=== PATIENT | female | born 1940 | race Caucasian/White ===

== ENCOUNTER → 2017-01-15 | Outpatient (CLI) | payer OTHER ==
[2017-01-15 14:55] LABS: BLOOD UREA NITROGEN 39 mg/dL (7-22); BUN/CREATININE RATIO 22.94 (6-20); CALCIUM 10.2 mg/dL (8.7-10.7); CHOL/HDL RATIO 2.05 RATIO (0-4.0); HDL CHOLESTEROL 72 mg/dL (40-150); SERUM ALBUMIN 4.2 g/dL (3.5-4.8); SERUM CHOLESTEROL 148 mg/dL (120-200)
[2017-01-15 15:01] LABS: BASOPHILS # (AUTO) 0.02 10*3/UL; BASOPHILS % (AUTO) 0.4 % (0-1); EOSINOPHILS # (AUTO) 0.27 10*3/UL; EOSINOPHILS % (AUTO) 5.7 % (0-8); HEMATOCRIT 32.9 % (37.0-47.0); HEMOGLOBIN 10.6 g/dL (12.0-16.0); LYMPHOCYTES # (AUTO) 1.24 10*3/uL; MEAN CORPUSCULAR HEMOGLOBIN 29.9 PG (27-31); MEAN CORPUSCULAR HGB CONC 32.2 g/dL (33-37); MEAN CORPUSCULAR VOLUME 92.7 FL (81-99); MEAN PLATELET VOLUME 10.2 FL (7.4-12.2); MONOCYTES # (AUTO) 0.41 10*3/UL (0.3-0.8); MONOCYTES % (AUTO) 8.7 % (5-15); NEUTROPHILS # (AUTO) 2.75 10*3/UL; NEUTROPHILS % (AUTO) 58.6 % (50-80); RED BLOOD COUNT 3.55 10^6/uL (4.20-5.40)
[2017-01-15 15:02] LABS: PLATELET MORPHOLOGY COMMENT NORMAL MORPHOLOGY (NORM); RBC MORPHOLOGY COMMENT NORMAL MORPHOLOGY (NORM); WBC MORPHOLOGY COMMENT NORMAL MORPHOLOGY (NORM)
[2017-01-15 15:29] LABS: HEMOGLOBIN A1C 4.67 % (4.2-6.0)
[2017-01-15 15:39] LABS: MAGNESIUM 1.7 mg/dL (1.6-2.4); URIC ACID 8.5 mg/dl (2.5-7.5)
[2017-01-15 16:44] LABS: FREE T4 (FREE THYROXINE) 1.45 ng/dL (0.93-1.71)
== END ==
LOC: LAB 08:36
PROVIDERS: ATTEND Internal Medicine
DX: I10 Essential (primary) hypertension (principal); E78.5 Hyperlipidemia, unspecified; E03.9 Hypothyroidism, unspecified; E11.9 Type 2 diabetes mellitus without complications; M10.9 Gout, unspecified; E83.42 Hypomagnesemia; D64.9 Anemia, unspecified; Q78.2 Osteopetrosis
CPT/HCPCS: 80053; 80061; 82306; 82728; 83036; 83735; 84439; 84443; 84550; 85025

== ENCOUNTER → 2017-01-16 | Outpatient (CLI) | payer OTHER ==
[2017-01-16 14:54] LABS: CREATININE, URINE 57.5 MG/DL (15-500)
== END ==
LOC: LAB 10:08
PROVIDERS: ATTEND Internal Medicine
DX: E11.9 Type 2 diabetes mellitus without complications (principal)
CPT/HCPCS: 82043

== ENCOUNTER → 2017-02-13 | Outpatient (CLI) | payer OTHER ==
[2017-02-13 15:33] LABS: BASOPHILS # (AUTO) 0.02 10*3/UL; BASOPHILS % (AUTO) 0.4 % (0-1); EOSINOPHILS # (AUTO) 0.25 10*3/UL; EOSINOPHILS % (AUTO) 4.4 % (0-8); HEMATOCRIT 34.3 % (37.0-47.0); HEMOGLOBIN 11.2 g/dL (12.0-16.0); MEAN CORPUSCULAR HEMOGLOBIN 29.8 PG (27-31); MEAN CORPUSCULAR HGB CONC 32.7 g/dL (33-37); MEAN CORPUSCULAR VOLUME 91.2 FL (81-99); MEAN PLATELET VOLUME 10.2 FL (7.4-12.2); MONOCYTES # (AUTO) 0.46 10*3/UL (0.3-0.8); MONOCYTES % (AUTO) 8.2 % (5-15); NEUTROPHILS % (AUTO) 60.2 % (50-80); PLATELET MORPHOLOGY COMMENT NORMAL MORPHOLOGY (NORM); RBC MORPHOLOGY COMMENT NORMAL MORPHOLOGY (NORM); RED BLOOD COUNT 3.76 10^6/uL (4.20-5.40); WBC MORPHOLOGY COMMENT NORMAL MORPHOLOGY (NORM)
[2017-02-13 16:05] LABS: BLOOD UREA NITROGEN 31 mg/dL (7-22); BUN/CREATININE RATIO 20.66 (6-20); CALCIUM 10.1 mg/dL (8.7-10.7); SERUM ALBUMIN 4.6 g/dL (3.5-4.8)
[2017-02-13 16:05] LABS: CHOL/HDL RATIO 1.92 RATIO (0-4.0)
[2017-02-13 17:34] LABS: FREE T4 (FREE THYROXINE) 0.77 ng/dL (0.93-1.71)
== END ==
LOC: LAB 08:55
PROVIDERS: ATTEND Internal Medicine
DX: D64.9 Anemia, unspecified (principal); E03.9 Hypothyroidism, unspecified; E78.5 Hyperlipidemia, unspecified; I10 Essential (primary) hypertension
CPT/HCPCS: 80053; 80061; 82550; 82728; 84439; 84443; 85025

== ENCOUNTER → 2017-04-06 | Outpatient (CLI) | payer OTHER ==
--- NOTE | 2017-04-06 10:34 | DI ---
XR KNEE CMPT 4 OR MORE VWS,04/06/2017 9:20 AM: Clinical History: Left knee pain. Previous Exam: June 01, 2016 Findings: 4 views of the left knee are obtained, and demonstrate anatomic alignment without fractures. There is mild diffuse osteopenia. Surrounding soft tissues are unremarkable. Impression: No fracture.
== END ==
LOC: ORTHO 09:31
PROVIDERS: ATTEND Orthopaedic Surgery
DX: M25.562 Pain in left knee (principal); S83.207D Unspecified tear of unspecified meniscus, current injury, left knee, subsequent encounter
CPT/HCPCS: 20610 ×2; 73564; 99214; G0463; J0702

== ENCOUNTER → 2017-04-11 | Outpatient (CLI) | payer OTHER ==
--- NOTE | 2017-04-11 14:18 | DI ---
MRI LOW EXTREMITY JNT W/O CN,04/11/2017 10:34 AM: Clinical History: Acute meniscal tear of the left knee. Previous Exam: April 03, 2016 contralateral knee. Findings: Multiplanar MR images are obtained through the left knee without contrast, and demonstrate anatomic a lignment without fractures. There are multiple full-thickness osteochondral defects predominantly wit hin the anterior compartment with a subchondral cyst formation along the medial. There is no evidence of knee joint effusion. There is thinning of the articular cartilage throughout especially involving the weightbearing surfac es of the femoral condyles. There are multiple small subchondral cyst noted involving the medial femo ral condyle. There is a vertical tear involving the posterior horn of the medial meniscus. The lateral meniscus is intact. The anterior and posterior cruciate ligaments are intact. The quadriceps and patellar tendons are unremarkable. The medial and lateral collateral ligaments are unremarkable as well. The major vascular flow voids are unremarkable. Signal within the musculature is unremarkable. Impression: 1. Vertical tear involving the entire thickness of the posterior horn of the medial meniscus. 2. Full-thickness osteochondral defects involving the anterior compartment and medial compartments pr edominantly.
== END ==
LOC: MRI 10:28
PROVIDERS: ATTEND Orthopaedic Surgery
DX: S83.207A Unspecified tear of unspecified meniscus, current injury, left knee, initial encounter (principal); S83.242A Other tear of medial meniscus, current injury, left knee, initial encounter
CPT/HCPCS: 73721

== ENCOUNTER → 2017-04-23 | Outpatient (CLI) | payer OTHER ==
[2017-04-23 11:33] LABS: BASOPHILS # (AUTO) 0.03 10*3/UL; BASOPHILS % (AUTO) 0.4 % (0-1); EOSINOPHILS # (AUTO) 0.18 10*3/UL; EOSINOPHILS % (AUTO) 2.5 % (0-8); HEMATOCRIT 30.4 % (37.0-47.0); HEMOGLOBIN 10.1 g/dL (12.0-16.0); LYMPHOCYTES # (AUTO) 1.25 10*3/uL; MEAN CORPUSCULAR HEMOGLOBIN 30.8 PG (27-31); MEAN CORPUSCULAR HGB CONC 33.2 g/dL (33-37); MEAN CORPUSCULAR VOLUME 92.7 FL (81-99); MEAN PLATELET VOLUME 9.4 FL (7.4-12.2); MONOCYTES # (AUTO) 0.57 10*3/UL (0.3-0.8); NEUTROPHILS # (AUTO) 5.11 10*3/UL; NEUTROPHILS % (AUTO) 71.5 % (50-80); RED BLOOD COUNT 3.28 10^6/uL (4.20-5.40)
[2017-04-23 11:40] LABS: PLATELET MORPHOLOGY COMMENT NORMAL MORPHOLOGY (NORM); RBC MORPHOLOGY COMMENT NORMAL MORPHOLOGY (NORM); WBC MORPHOLOGY COMMENT NORMAL MORPHOLOGY (NORM)
[2017-04-23 11:48] LABS: BLOOD UREA NITROGEN 28 mg/dL (7-22); CALCIUM 10.2 mg/dL (8.7-10.7); SERUM ALBUMIN 4.5 g/dL (3.5-4.8)
[2017-04-23 11:52] LABS: HEMOGLOBIN A1C 4.88 % (4.2-6.0)
[2017-04-23 13:11] LABS: FREE T4 (FREE THYROXINE) 0.9 ng/dL (0.93-1.71)
== END ==
LOC: LAB 11:12
PROVIDERS: ATTEND Internal Medicine
DX: M25.562 Pain in left knee (principal); D64.9 Anemia, unspecified; E03.9 Hypothyroidism, unspecified; E11.9 Type 2 diabetes mellitus without complications; E78.5 Hyperlipidemia, unspecified; E83.52 Hypercalcemia; I10 Essential (primary) hypertension; M10.9 Gout, unspecified; Z90.49 Acquired absence of other specified parts of digestive tract
CPT/HCPCS: 36415; 80053; 82043; 82607; 82728; 83010; 83036; 83540; 83550; 83921; 84439; 84443; 84550; 85025; 85045

== ENCOUNTER 2017-04-24 10:41 | Day surgery (SDC) | payer OTHER ==
[~2017-04-24 10:41] MED LIST: ATROPINE SULFATE 0.4 MG/1 ML VIAL IVP PRN; HYDROmorphone 2 MG/1 ML IVP PRN; LIDOCAINE W/ SODIUM BICARB 0.5 ML SYR ONE; Lactated Ringers 1,000 ML PRIMARY IV ONE; Lactated Ringers 1,000 ML PRIMARY IV SCH; NORMAL SALINE 10 ML SYRINGE FLUSH IVP PRN; ONDANSETRON 4 MG/2 ML VIAL IVP PRN; Ondansetron ODT Tab 8 MG TAB PO PRN; ceFAZolin Inj 2gm (Premix) 50 ML IV ONE
[2017-04-24] MEDS ORDERED: MIDAZOLAM 5 MG/1 ML ONE (11:53)
[2017-04-24] MEDS ORDERED: fentaNYL Inj 100 MCG/2 ML VIAL ONE ×2 (11:53→13:30)
[2017-04-24] MEDS ORDERED: LIDOCAINE MPF 2% - 5 ML (20 MG/1 ML) ONE (11:58)
[2017-04-24] MEDS ORDERED: EPINEPHrine Inj (1:1,000) 30mg/30ml vial ONE (12:00)
[2017-04-24] MEDS ORDERED: Ropivacaine 0.2% VIAL 20 ML ONE (12:00)
[2017-04-24] MEDS ORDERED: ePHEDrine Inj 50 MG/ML AMP ONE (12:23)
[2017-04-24] MEDS ORDERED: ONDANSETRON 4 MG/2 ML VIAL ONE (12:41)
[2017-04-24] MEDS ORDERED: DEXAMETHASONE SOD PHOSPHATE 4 MG/1 ML VIAL ONE (12:41)
[2017-04-24] MEDS ORDERED: Lactated Ringers 1,000 ML PRIMARY IV ONE ×2 (12:45→12:57)
[2017-04-24] MEDS ORDERED: BETAMET ACET/BETAMET NA PH 6 MG/1 ML - 5 ML ONE (12:55)
[2017-04-24] MEDS: fentaNYL Inj 100 MCG/2 ML VIAL IVP PRN ×4 (13:23→14:00)
[2017-04-24] MEDS ORDERED: BISACODYL 5 MG TABLET PO PRN (13:31)
[2017-04-24] MEDS ORDERED: Ondansetron ODT Tab 8 MG TAB PO PRN (13:31)
[2017-04-24] MEDS ORDERED: Prochlorperazine Tab 10 MG TAB PO PRN (13:31)
[2017-04-24] MEDS ORDERED: MORPHINE SULFATE 2 MG/1 ML IVP PRN (13:31)
[2017-04-24] MEDS ORDERED: oxyCODONE/APAP 7.5/325 Tab 1 TAB TAB PO PRN (13:31)
[2017-04-24] MEDS ORDERED: MAG HYDROX/AL HYDROX/SIMETH 30 ML SUSP PO PRN (13:31)
[2017-04-24] MEDS ORDERED: diphenhydrAMINE 25 MG CAPSULE PO PRN (13:31)
[2017-04-24] MEDS ORDERED: BISACODYL 10 MG SUPPOSITORY RECTAL PRN (13:31)
[2017-04-24] MEDS ORDERED: ONDANSETRON 4 MG/2 ML VIAL IVP PRN (13:31)
[2017-04-24] MEDS ORDERED: IBUPROFEN 400 MG TABLET PO PRN (13:31)
[2017-04-24] MEDS ORDERED: CALCIUM CARBONATE 500 MG (TUMS) CHEWABLE TABLET PO PRN (13:31)
[2017-04-24] MEDS ORDERED: ACETAMINOPHEN 325 MG TABLET PO PRN (13:31)
[2017-04-24] MEDS ORDERED: NORMAL SALINE 10 ML SYRINGE FLUSH IVP PRN (13:31)
[2017-04-24 13:34] VITALS: RESP 16
[2017-04-24] MEDS ORDERED: Lactated Ringers 1,000 ML PRIMARY IV SCH (13:45)
[2017-04-24] MEDS ORDERED: oxyCODONE/APAP 7.5/325 Tab 1 TAB TAB PO ONE (13:56)
[2017-04-24] MEDS ORDERED: Sodium Chloride 0.9% 500 ML ONE (14:07)
[2017-04-24 15:44] VITALS: TEMP 96.8
--- NOTE | 2017-04-25 15:25 | OPS CRUTCH ---
Diagnosis : Status Post Left Knee Debridement Referral Reason: Gait Training/Knee Cryo Cuff O: Patient was instructed in the use of walker with gait belt, both on level surfaces and up and down stairs, weight-bearing as tolerated. The patient was issued a Cryo-Cuff and instructed in its proper use and care. P: No further therapy is indicated at this time. MTDD
== END 2017-04-24 15:05 | disposition home or self-care (01) ==
LOC: SDSC 10:41
PROVIDERS: ATTEND Orthopaedic Surgery
DX: S83.232A Complex tear of medial meniscus, current injury, left knee, initial encounter (principal); M65.862 Other synovitis and tenosynovitis, left lower leg
CPT/HCPCS: 29876; 29879; 29881; 97116; J0171; J0690; J0702; J1100; J2001; J2250; J2405; J2704; J2795; J3010; J7040; J7120